=== PATIENT | female | born 1990 | race African-American/Black ===

== ENCOUNTER 2023-11-05 22:31 | Emergency (ER) | payer OTHER, SELFPAY ==
--- NOTE | ~2023-11-05 | XR_ITS ---
Clinical Indication: Chest pain PA and lateral views of the chest: Comparison: None Findings: The lungs are clear, without evidence of focal consolidation or pleural effusion. Cardiome diastinal silhouette is within normal limits. Bones and soft tissues are unremarkable. Impression: Normal chest. Reviewed, dictated and finalized at location . Impression: Normal chest.
[2023-11-05 22:35] VITALS: BP 134/78; PULSE 62; RESP 18; TEMP 36.3; O2SAT 100
--- NOTE | 2023-11-05 22:37 | ECG_ITS ---
[facility] [address] Test Date: 2023-11-05 Pat Name: Emy Garibay Department: Room: Gender: F Curriculum And Instruction Specialist: JUAN JOSE FERREIRAB: 1990 Requested By: Sherrie Dahl Order Number: [id number] Reading MD: Aydin Espinoza M.D. Measurements Intervals [place] Rate: 57 P: 43 GA: 158 QRS: 62 QRSD: 101 T: 46 QT: 407 QTc: 399 Interpretive Statements SINUS BRADYCARDIA POSSIBLE RIGHT VENTRICULAR CONDUCTION DELAY [RSR (QR) IN V1/V2] WITHIN NORMAL LIMITS No previous ECG available for comparison Electronically Signed On 11-06-2023 08:11:45 CDT by Aydin Espinoza M.D.
[2023-11-05 22:45] LABS: Glucose Point of Care 96 mg/dl (65-105)
[2023-11-05 23:40] VITALS: PULSE 57; O2SAT 100
--- NOTE | 2023-11-06 00:31 | ED.CHESTPAIN ---
HPI - Chest Pain General Chief Complaint: Chest Pain Stated Complaint: chest pain, tingling to L side of face Time Seen by Provider: 11/05/23 23:32 History of Present Illness HPI narrative: Patient presents with chest tightness, started about 2 days ago, she has had similar symptoms in the past. She also several hours ago started noticing some numbness to left side of her face and some pain to her left eye has been ongoing for 2 days, the numbness/ tingling to her face has largely resolved. Has never had that happen before but she does occasionally have intermittent vague pain to her arms Related Data Allergies Allergy/AdvReac Type Severity Reaction Status Date / Time latex AdvReac Swelling Verified 11/05/23 22:38 Review of Systems Review of Systems: All systems reviewed & are unremarkable except as noted in HPI and below Exam Narrative: EXAMINATION OF ORGAN SYSTEMS/BODY AREAS: Constitutional: Vital signs per nursing GENERAL:[No acute distress, non-toxic appearing.] HEAD: Normal with no signs of head trauma. EYES: EOMI, conjunctiva normal, PERRL ENT: Hearing grossly intact LUNGS: Nonlabored breathing. HEART: [Regular rate and rhythm] ABD: [Soft], [nontender to palpation] EXT: Normal range of motion SKIN: [No rashes or lesions.] NEURO: [Alert and oriented x 3. normal motor strength upper and lower extremities. CN 2 through 12 intact other than some paresthesias to the left side of her face. No facial asymmetry..] PSYCH: Normal affect Course Vital Signs Vital signs: Vital Signs Temperature 97.3 F L 11/05/23 22:35 Pulse Rate 62 11/05/23 22:35 Respiratory Rate 18 11/05/23 22:35 Blood Pressure 134/78 11/05/23 22:35 Pulse Oximetry 100 11/05/23 22:35 Oxygen Delivery Room Air 11/05/23 22:35 Temperature 97.3 F L 11/05/23 22:35 Pulse Rate 57 L 11/05/23 23:40 Respiratory Rate 18 11/05/23 22:35 Blood Pressure 134/78 11/05/23 22:35 Pulse Oximetry 100 11/05/23 23:40 Oxygen Delivery Room Air 11/05/23 23:40 MDM - Chest Pain MDM Narrative Medical decision making narrative: ED COURSE AND MEDICAL DECISION MAKIN-year-old female with no past medical history presenting with chest pain. EKG done in triage negative for acute ischemic changes. Cardiac workup is initiated. EKG: Performed in triage and interpreted by me. Normal sinus rhythm. Rate [57]. Normal axis. VT normal. QRS duration normal. QTc normal. No pathologic Q waves. No ST segment elevation or depression to suggest acute ischemia. No RV strain pattern. No acute ischemic changes on EKG and no risk factors making ACS unlikely. Negative PERC making PE unlikely. Presentation not consistent with dissection or aneurysm without radiation of pain or pulse deficits. CXR negative for mediastinal widening. No cardiomegaly or JVD to suggest pericardial effusion/tamponade. patient tells me that she has also had intermittent tingling and paresthesias to her left face. It has already improved, she has no risk factors, this makes me less concerned for CVA, I did bring up various etiologies including MS and patient now tells me that for the last few years she has had intermittent symptoms with her arms with various pains or paresthesias. given this I did offer her for the patient to be admitted here for MRI and Neurology consultation. patient unfortunately does have to go home at this time and would rather not be admitted tonight, but she will try to follow up with primary care doctor or neurologist for further workup and evaluation. On repeat evaluation just prior to discharge, the patient is no acute distress. I had a long discussion with the patient and with shared decision making, she Prefers a outpatient management. She was given clear return instructions by myself in person as well as on discharge paperwork. Lab Data Labs: Lab Results 11/05/23 Range/Units 22:42 POC Capillary Glucose 96 ([id number]
== END 2023-11-06 02:07 | disposition home or self-care (01) ==
PROVIDERS: Emergency Provider Emergency Medicine
DX: R07.89 Other chest pain (principal); R20.2 Paresthesia of skin
CPT/HCPCS: 71046; 82948; 93005; 99284